=== PATIENT | female | born 1990 | race Caucasian/White ===

== ENCOUNTER 2023-12-30 20:51 | Emergency (ER) | payer MEDICAID ==
[~2023-12-30] VITALS: Ht 160 cm; Wt 82.1 kg
[2023-12-30 20:55] VITALS: BP_SYST 103; PULSE 81; RESP 20; TEMP 98.6; O2SAT 98
[2023-12-30 21:32] LABS: BILIRUBIN,URINE NEGATIVE (NEGATIVE); BLOOD, URINE 3+ (NEGATIVE); COLOR,URINE YELLOW (YELLOW); GLUCOSE,URINE NEGATIVE (NEGATIVE); KETONES,URINE TRACE (NEGATIVE); NITRITE, URINE NEGATIVE (NEGATIVE); PH,URINE 6.5 (5.0-8.0); PROTEIN URINE 1+ (NEGATIVE)
[2023-12-30 21:38] LABS: CLARITY/URINE HAZY (CLEAR); LEUKOCYTE ESTERASE ,URINE 1+ (NEGATIVE)
[2023-12-30 21:39] LABS: BACTERIA,URINE FEW /HPF (None Seen); MUCUS,URINE 1+ /LPF (None Seen)
[2023-12-30] MEDS: NACL 0.9% 500 ML IV ONE (23:04)
[2023-12-30] MEDS: HYDROmorphone 1 MG/ML INJ. CARTRIDGE IVP ONE (23:06)
[2023-12-30] MEDS ORDERED: levETIRAcetam 1,000 MG IV BAG 100 ML IV ONE (23:45)
[2023-12-31] MEDS: LIDOCAINE 1% 10 MG/ML, 20 ML MDV INJ ONE (00:10)
[2023-12-31] MEDS: cefTRIAXone 1 GM IVPB PREMIX 50 ML IV ONE (01:41)
[2023-12-31] MEDS ORDERED: CIPR500T5 PO (02:19)
[2023-12-31 02:26] VITALS: BP_SYST 138; PULSE 75; RESP 18; TEMP 97; O2SAT 97
[2023-12-31] MEDS ORDERED: METR-154 PO (02:34)
== END 2023-12-31 02:26 | disposition home or self-care (01) ==
LOC: SED 20:51
DX: N39.0 Urinary tract infection, site not specified (principal); R10.2 Pelvic and perineal pain; N76.0 Acute vaginitis; Z88.0 Allergy status to penicillin; Z79.899 Other long term (current) drug therapy; Z79.2 Long term (current) use of antibiotics
CPT/HCPCS: 99285; 96361; 96375; 81001; 87040; 87086; 36415; 96372; 96365; 76830; 76857; J1170; J7040; J0696; 81000; 81015; J1953; J2001